=== PATIENT | male | born 1965 | race Hispanic/Latino ===

== ENCOUNTER 2019-12-31 21:17 | Emergency (ER) | payer OTHER ==
[~2019-12-31] VITALS: Ht 170.2 cm; Wt 90.5 kg
[2019-12-31 22:45] LABS: HEMATOCRIT 38.6 % (39.0-50.0); HEMOGLOBIN 13.3 g/dl (14.0-18.0); IMMATURE GRANULOCYTES 0.3 % (0.0-5.0); MEAN CELL VOLUME 81.6 fL CALC (80.0-100.0); MEAN CORPUSCULAR HGB 28.1 pG CALC (26.0-32.0); MEAN CORPUSCULAR HGB CONC 34.5 g/dL CAL (32.0-36.0); NEUT# 10.36 thou/uL (1.82-7.42); RED BLOOD COUNT 4.73 mill/uL (4.70-6.10); RED CELL DISTRI WIDTH 12.5 % (11.5-15.5)
[2019-12-31] MEDS ORDERED: HYDROCHLOROT25 MG PO (22:47)
[2019-12-31] MEDS ORDERED: TRILEPTAL150 M1 PO (22:48)
[2019-12-31] MEDS ORDERED: DOXYCYCL HYC100 MG PO (22:48)
[2019-12-31] MEDS ORDERED: AMLODIPINE BESY10 MG PO (22:49)
[2019-12-31] MEDS ORDERED: LISINOPRIL20 MG PO (22:50)
[2019-12-31] MEDS ORDERED: PROTONIX40 MG PO (22:50)
[2019-12-31] MEDS ORDERED: ASPIRIN EC LOW81 MG PO (22:51)
[2019-12-31 23:01] LABS: ALBUMIN 4.1 g/dL (3.2-5.0); ALKALINE PHOSPHATASE 73 u/l (38-126); ANION GAP 13 (6-22 (CALC)); BILIRUBIN, TOTAL 0.5 mg/dL (0.0-1.4); BUN 18 mg/dL (9-20); BUN/CREATININE RATIO 21 (12-20 (CALC)); CARBON DIOXIDE 24 mmol/l (22-30); CHLORIDE 102 mmol/l (95-108); CREATININE 0.9 mg/dL (0.7-1.3); GFR > 60 ML/MIN (>=60 (CALC)); GFR FOR AFR.AMER. > 60 ML/MIN (>=60 (CALC)); POTASSIUM 3.8 mmol/l (3.5-5.1); SGOT/AST 21 u/l (17-59); SODIUM 135 mmol/l (137-146); TOTAL PROTEIN 7.2 g/dL (6.3-8.2)
[2019-12-31 23:08] LABS: ACT PARTIAL THROMBO TIME 27.3 SECONDS (20.0-32.5); D-DIMER 0.54 mg/L (0.19-0.60); INTERNATIONAL NORMALIZED RATIO 1.1 RATIO (0.7-1.3); PROTHROMBIN TIME 11.5 SECONDS (9.0-12.5)
[2020-01-01 00:49] VITALS: BP 149/73
== END 2020-01-01 00:48 | DRG 603 ==
LOC: ED 21:17
PROVIDERS: Family Medicine
DX: L03.115 Cellulitis of right lower limb (principal); L84 Corns and callosities; L97.519 Non-pressure chronic ulcer of other part of right foot with unspecified severity; I10 Essential (primary) hypertension; M79.5 Residual foreign body in soft tissue